=== PATIENT | male | born 1945 | race Caucasian/White ===

== ENCOUNTER → 2016-10-21 | Outpatient (CLI) | payer MEDICARE, BC | LOC: MW.CHGS 08:00 | PROVIDERS: ATTEND Surgery | DX: R19.5 Other fecal abnormalities (principal) | CPT/HCPCS: 99203 ==

== ENCOUNTER 2016-11-07 06:27 | Day surgery (SDC) | payer MEDICARE, BC ==
[~2016-11-07 06:27] MED LIST: Lactated Ringers 1,000 ML IV SCH; Sodium Chloride 0.9% 10 ML Syringe FLUSH PRN; Sodium Chloride 0.9% 2.5 ML Syringe FLUSH PRN
--- NOTE | 2016-11-07 07:06 | PCM.PREANE ---
Preanesthetic Assessment - Anesthesia/Transfusion/Family Hx Anesthesia History: Prior Anesthesia Without Reaction Family History of Anesthesia Reaction: No Transfusion History: Prior Transfusion Without Reaction Intubation History: Unknown - Review of Systems General: No Symptoms Pulmonary: No Symptoms Cardiovascular: No Symptoms Gastrointestinal: No symptoms Neurological: No Symptoms Other: Reports: None - Physical Assessment O2 Sat by Pulse Oximetry: 97 Respiratory Rate: 16 Vital Signs: Last Vital Signs Temp 36.5 C 11/07/16 06:48 Pulse 74 11/07/16 06:48 Resp 16 11/07/16 06:48 BP 134/76 11/07/16 06:48 Pulse Ox 97 11/07/16 06:48 Height: 1.65 m Weight: 114.759 kg ASA Class: 3 Mental Status: Alert & Oriented x3 Airway Class: Mallampati = 3 Dentition: Reports: Normal Dentition, Gerty(s) (x1 upper front) Thyro-Mental Finger Breadths: 3 Mouth Opening Finger Breadths: 2 ROM/Head Extension: Limited/Partial Lungs: Clear to auscultation, Normal respiratory effort, Decreased breath sounds Cardiovascular: Regular Rate, Regular Rhythm - Allergies Allergies/Adverse Reactions: Allergies Allergy/AdvReac Type Severity Reaction Status Date / Time levofloxacin [From Levaquin] Allergy Swelling Verified 11/02/16 12:07 - Blood Blood Available: No - Anesthesia Plan Pre-Op Medication Ordered: None - Acknowledgements Anesthesia Type Planned: MAC Pt an Appropriate Candidate for the Planned Anesthesia: Yes Alternatives and Risks of Anesthesia Discussed w Pt/Guardian: Yes Pt/Guardian Understands and Agrees with Anesthesia Plan: Yes PreAnesthesia Questionnaire Respiratory History: Reports: Other (See Below) Other Respiratory History: "farmers lung", sleep apnea (no longer uses CPAP, "has been having to get up to the bathroom often during the night due to prostatitis and does not both to put his CPAP back on"). He can walk couple of blocks slowly without SOB. Gastrointestinal History: Reports: GI Bleed, Other (See Below) Other Gastrointestinal History: occasional heartburn, hx GI bleed due to medication he was taking, had to have blood transfusion Genitourinary History: Reports: BPH, Prostate Disorder Other Genitourinary History: nocturia Musculoskeletal History: Reports: Other (See Below) Other Musculoskeletal History: occasional back pain Neurological History: Reports: Other (See Below) Other Neuro History: restless leg syndrome Endocrine/Metabolic History: Reports: Obesity/BMI 30+ Hematologic History: Reports: Blood Transfusion(s) - Past Surgical History Head Surgeries/Procedures: Reports: None HEENT Surgical History: Reports: Cataract Surgery GI Surgical History: Reports: Colonoscopy, EGD Other GI Surgeries/Procedures: hx hemorrhoidectomy, EGD, colonoscopy Musculoskeletal Surgical History: Reports: Other (See Below) Other Musculoskeletal Surgeries/Procedures:: left foot surgery for hammer toes - SUBSTANCE USE Smoking Status *Q: Never Smoker Recreational Drug Use History: No - HOME MEDS Home Medications: Home Meds Iron 28 mg PO ASDIRECTED 11/02/16 [History] L.acidoph,Paracasei, B.lactis [Probiotic] 1 tab PO ASDIRECTED 11/02/16 [History] Sulfamethoxazole/Trimethoprim [Bactrim 400-80 MG] 1 tab PO BID 11/02/16 [History ] - CURRENT (IN HOUSE) MEDS Current Meds: Current Medications Lactated Ringer's (Ringers, Lactated) 1,000 mls @ 125 mls/hr IV ASDIRECTED [facility] Last Admin: 11/07/16 06:47 Dose: 125 mls/hr Sodium Chloride (Saline Flush) 10 ml FLUSH ASDIRECTED PRN PRN Reason: Keep Vein Open Sodium Chloride (Saline Flush) 2.5 ml FLUSH ASDIRECTED PRN PRN Reason: Keep Vein Open
[2016-11-07] MEDS ORDERED: Lidocaine 2% 5 ML SDV ONE (07:14)
[2016-11-07] MEDS ORDERED: fentaNYL 100 MCG/2 ML SDV ONE (07:15)
[2016-11-07] MEDS ORDERED: Propofol 200 MG/20 ML SDV ONE (07:15)
--- NOTE | 2016-11-07 08:32 | PCM.OPNOTE ---
- General Post-Op/Procedure Note Date of Surgery/Procedure: 11/07/16 Operative Procedure(s): Diagnostic EGD and colonoscopy Findings: Large hiatal hernia, normal colon Pre Op Diagnosis: Positive fecal occult blood test Post-Op Diagnosis: hiatal hernia Anesthesia Technique: ANISH Primary Surgeon: Jennifer Costello Condition: Good
--- NOTE | 2016-11-07 08:39 | PCM.POSTAN ---
POST ANESTHESIA ASSESSMENT - MENTAL STATUS Mental Status: alert, oriented - RESPIRATORY Respiratory Status: respiratory rate WNL, airway patent, O2 saturation stable - CARDIOVASCULAR CV Status: pulse rate WNL, blood pressure stable - GASTROINTESTINAL GI Status: no symptoms - POST OP HYDRATION Hydration Status: adequate & stable - OBSERVATIONS Free Text/Narrative:: no anesthesia problems
[2016-11-07 08:58] VITALS: BP 133/78
--- NOTE | 2016-11-07 20:53 | OR ---
SURGEON: JENNIFER COSTELLO MD DATE OF PROCEDURE: 11/07/2016 PREOPERATIVE DIAGNOSIS: Positive fecal occult blood test. POSTOPERATIVE DIAGNOSIS: Hiatal hernia. PROCEDURES PERFORMED: Diagnostic EGD and colonoscopy. ENDOSCOPIST: Jennifer Costello MD. ANESTHESIA: MAC. INSTRUMENTS USED: Olympus endoscope and Olympus colonoscope. EXTENT OF EXAM: To the second portion of the duodenum during the endoscopic portion. To the cecum during the colonoscopic portion. PREP: Fair. COMPLICATIONS: None. INDICATIONS: The patient is a 71-year-old male, who presented to Clinic with a positive fecal occult blood test performed at his primary care physician's office. The patient denies any changes in his eating or bowel habits. The decision was made to perform a diagnostic EGD and colonoscopy. We discussed the procedures as well as the expected perioperative course. We discussed the risks including bleeding, infection, or damage to surrounding structures including perforation. The patient verbalized understanding and wished to proceed. PROCEDURE IN DETAIL: The patient was brought to the Endoscopy Suite, and placed on the cart in a beach chair position. A time-out was completed verifying the patient's name, age, date of , allergies, and procedure to be performed. Monitored anesthesia care was induced, and a bite block was placed in the patient's mouth. A continuous oxygen was provided via nasal cannula throughout the procedure. After adequate sedation was achieved, an Olympus endoscope was passed through the bite block into the patient's mouth, and advanced under direct visualization to the second portion of the duodenum. This appeared normal and a photograph was taken. The scope was then brought back. The duodenal bulb was normal appearing and a photograph was taken. The scope was brought into the stomach, and a photograph was taken of the pylorus as well as the esophageal hiatus. The patient was noted to have a large hiatal hernia at the esophageal hiatus. The stomach itself looked mildly erythematous. So, biopsies were taken of the gastric antrum, body, and fundus. The photograph was taken of the hiatal hernia right before the GE junction. The scope was brought into the esophagus, and a photograph was taken of the GE junction. The esophageal mucosa all appeared normal. The patient was placed in the left lateral decubitus position, and a digital rectal exam was performed. This examination was within normal limits. A well- lubricated colonoscope was inserted in the rectum and advanced under direct visualization to the level of the cecum. The cecum was identified by visual and anatomic landmarks. A photograph was taken of the cecal cap. I was unable to retroflex the scope within the cecum due to significant looping more proximally with the scope. The scope was then fully withdrawn while examining the color, texture, anatomy, and integrity of mucosa from the cecum to the anal canal. This was consistent with normal colonic mucosa. The scope was brought into the rectum and retroflexed to allow visualization of the anal canal opening. This appeared normal and a photograph was taken. The scope was then straightened out and removed from the patient. The cecum to anus time was 10 minutes. POSTOPERATIVE CONDITION: The patient tolerated the procedure well, and was taken to PACU in stable condition. ENDOSCOPIC DIAGNOSIS: Hiatal hernia. PLAN: We will have a barium swallow study done prior to the patient coming to see me back in Clinic in 1 to 2 weeks. AGAPITO MEJÍA /[id number]
== END 2016-11-07 09:05 | disposition home or self-care (01) ==
LOC: MW.SDS 06:27
PROVIDERS: ATTEND Surgery
PROC: 0DB68ZX Excision of Stomach, Via Natural or Artificial Opening Endoscopic, Diagnostic (ICD-10-PCS; principal; 2016-11-07)
PROC: 0DJD8ZZ Inspection of Lower Intestinal Tract, Via Natural or Artificial Opening Endoscopic (ICD-10-PCS; 2016-11-07)
DX: K44.9 Diaphragmatic hernia without obstruction or gangrene (principal); N39.0 Urinary tract infection, site not specified; N41.1 Chronic prostatitis; J45.909 Unspecified asthma, uncomplicated; G47.30 Sleep apnea, unspecified; N40.0 Benign prostatic hyperplasia without lower urinary tract symptoms; E66.9 Obesity, unspecified; Z79.2 Long term (current) use of antibiotics; Z79.899 Other long term (current) drug therapy; Z88.1 Allergy status to other antibiotic agents; Z80.0 Family history of malignant neoplasm of digestive organs; Z98.49 Cataract extraction status, unspecified eye; Z98.890 Other specified postprocedural states; Z68.41 Body mass index [BMI] 40.0-44.9, adult
CPT/HCPCS: 43239; 45378; J3010; J7120; 00740; 88305; 88312; J2704

== ENCOUNTER 2018-07-20 15:21 | Emergency (ER) | payer MEDICARE, BC ==
--- NOTE | 2018-07-20 15:42 | EDM.PDOC ---
ED HPI GENERAL MEDICAL PROBLEM - General Chief Complaint: General Stated Complaint: FEVER Time Seen by Provider: 07/20/18 15:35 - History of Present Illness INITIAL COMMENTS - FREE TEXT/NARRATIVE: HISTORY AND PHYSICAL: History of present illness: Patient a 72-year-old white male presents with concern of fever he had a recent root canal and has had some mild cough over the last day or 2. He did get influenza immunization this year he denies shortness of breath his fever has been responsive to antipyretics and is afebrile on arrival here. Review of systems: As per history of present illness and below otherwise all systems reviewed and negative. Past medical history: As per history of present illness and as reviewed below otherwise noncontributory. Surgical history: As per history of present illness and as reviewed below otherwise noncontributory. Social history: No reported history of drug or alcohol abuse. Family history: As per history of present illness and as reviewed below otherwise noncontributory. Physical exam: HEENT: Atraumatic, normocephalic, pupils reactive, negative for conjunctival pallor or scleral icterus, mucous membranes moist, throat clear, neck supple, nontender, trachea midline. Lungs: Clear to auscultation, breath sounds equal bilaterally, chest nontender. Heart: S1S2, regular, negative for clicks, rubs, or JVD. Abdomen: Soft, nondistended, nontender. Negative for masses or hepatosplenomegaly. Negative for costovertebral tenderness. Pelvis: Stable nontender. Genitourinary: Deferred. Rectal: Deferred. Extremities: Atraumatic, negative for cords or calf pain. Neurovascular unremarkable. Neuro: Awake, alert, oriented. Cranial nerves II through XII unremarkable. Cerebellum unremarkable. Motor and sensory unremarkable throughout. Exam nonfocal. Diagnostics: CBC CMP UA blood cultures 2 chest x-ray influenza screen Therapeutics: None Impression: #1 history of fever #2 history recent root canal Definitive disposition and diagnosis as appropriate pending reevaluation and review of above. - Related Data Allergies Allergy/AdvReac Type Severity Reaction Status Date / Time levofloxacin [From Levaquin] Allergy Swelling Verified 07/20/18 15:42 Home Meds: Home Meds . [No Known Home Meds] 07/20/18 [History] Past Medical History Respiratory History: Reports: Other (See Below) Other Respiratory History: "farmers lung", sleep apnea (no longer uses CPAP, "has been having to get up to the bathroom often during the night due to prostatitis and does not both to put his CPAP back on"). He can walk couple of blocks slowly without SOB. Gastrointestinal History: Reports: GI Bleed, Other (See Below) Other Gastrointestinal History: occasional heartburn, hx GI bleed due to medication he was taking, had to have blood transfusion Genitourinary History: Reports: BPH, Prostate Disorder Other Genitourinary History: nocturia Musculoskeletal History: Reports: Other (See Below) Other Musculoskeletal History: occasional back pain Neurological History: Reports: Other (See Below) Other Neuro History: restless leg syndrome Endocrine/Metabolic History: Reports: Obesity/BMI 30+ Hematologic History: Reports: Blood Transfusion(s) - Past Surgical History Head Surgeries/Procedures: Reports: None HEENT Surgical History: Reports: Cataract Surgery GI Surgical History: Reports: Colonoscopy, EGD Other GI Surgeries/Procedures: hx hemorrhoidectomy, EGD, colonoscopy Musculoskeletal Surgical History: Reports: Other (See Below) Other Musculoskeletal Surgeries/Procedures:: left foot surgery for hammer toes ED ROS GENERAL - Review of Systems Review Of Systems: ROS reveals no pertinent complaints other than HPI. ED EXAM, GENERAL - Physical Exam Exam: See Below (See dictation) Course - Vital Signs Text/Narrative:: Patient has an unremarkable ED course he is adamant that he has no dental pain or swelling he has had some loose stool but denies abdominal pain I discussed with patient and empiric antibiotics. They declined and requested discharge home and follow-up with her private medical doctor we will attempt to get stool for C&S O&P and C. difficile prior to Last Recorded V/S: Last Vital Signs Temp 36.9 C 07/20/18 15:43 Pulse 93 07/20/18 15:43 Resp 16 07/20/18 15:43 BP 124/75 07/20/18 15:43 Pulse Ox 98 07/20/18 15:43 - Orders/Labs/Meds Orders: Active Orders 24 hr Category Date Time Status CULTURE BLOOD [BC] Stat Lab 07/20/18 15:57 Received CULTURE BLOOD [BC] Stat Lab 07/20/18 16:13 Received CULTURE URINE [RM] Stat Lab 07/20/18 16:00 Received Blood Culture x2 Reflex Set [OM.PC] Stat Oth 07/20/18 15:39 Ordered Labs: Laboratory Tests 07/20/18 07/20/18 07/20/18 Range/Units 15:57 15:57 16:00 WBC 6.54 (4.0-11.0) K/uL RBC 4.67 (4.50-5.90) M/uL Hgb 12.3 L (13.0-17.0) g/dL Hct 38.4 (38.0-50.0) % MCV 82.2 (80.0-98.0) fL MCH 26.3 L (27.0-32.0) pg MCHC 32.0 (31.0-37.0) g/dL RDW Std Deviation 51.4 (28.0-62.0) fl RDW Coeff of Loan 17 H (11.0-15.0) % Plt Count 253 (150-400) K/uL MPV 10.70 (7.40-12.00) fL Neut % (Auto) 78.0 (48.0-80.0) % Lymph % (Auto) 9.9 L (16.0-40.0) % [place] % (Auto) 9.2 (0.0-15.0) % Eos % (Auto) 2.1 (0.0-7.0) % Baso % (Auto) 0.8 (0.0-1.5) % Neut # (Auto) 5.1 (1.4-5.7) K/uL Lymph # (Auto) 0.7 (0.6-2.4) K/uL [place] # (Auto) 0.6 (0.0-0.8) K/uL Eos # (Auto) 0.1 (0.0-0.7) K/uL Baso # (Auto) 0.1 (0.0-0.1) K/uL Nucleated RBC % 0.0 /100WBC Nucleated RBCs # 0 K/uL Sodium 138 (136-148) mmol/L Potassium 3.9 (3.5-5.1) mmol/L Chloride 105 (98-107) mmol/L Carbon Dioxide 21.1 (21.0-32.0) mmol/L BUN 14 (7.0-18.0) mg/dL Creatinine 1.4 H (0.8-1.3) mg/dL Est Cr Clr Drug Dosing 43.67 mL/min Estimated GFR (MDRD) 50.0 ml/min Glucose 142 H (74-106) mg/dL Calcium 8.4 L (8.5-10.1) mg/dL Total Bilirubin 0.2 (0.2-1.0) mg/dL AST 22 (15-37) IU/L ALT 26 (14-63) IU/L Alkaline Phosphatase 73 (46-116) U/L Total Protein 7.1 (6.4-8.2) g/dL Albumin 3.4 (3.4-5.0) g/dL Globulin 3.7 (2.6-4.0) g/dL Albumin/Globulin Ratio 0.9 (0.9-1.6) Urine Color YELLOW Urine Appearance CLEAR Urine pH 5.5 (5.0-8.0) Ur Specific [place] 1.010 (1.001-1.035) Urine Protein NEGATIVE (NEGATIVE) mg/dL Urine Glucose (UA) NEGATIVE (NEGATIVE) mg/dL Urine Ketones NEGATIVE (NEGATIVE) mg/dL Urine Occult Blood NEGATIVE (NEGATIVE) Urine Nitrite NEGATIVE (NEGATIVE) Urine Bilirubin NEGATIVE (NEGATIVE) Urine Urobilinogen 0.2 (<2.0) EU/dL Ur Leukocyte Esterase SMALL H (NEGATIVE) Urine RBC 0-1 (0-2/HPF) Urine WBC 3-4 (0-5/HPF) Ur Epithelial Cells FEW (NONE-FEW) Urine Bacteria RARE (NEGATIVE) Departure - Departure Time of Disposition: 17:44 Disposition: Home, Self-Care 01 Condition: Good Clinical Impression: History of fever, History of recent dental procedure - Discharge Information Referrals: Zack Vail MD [Primary Care Provider] - Forms: ED Department Discharge Additional Instructions: The following information is given to patients seen in the emergency department who are being discharged to home. This information is to outline your options for follow-up care. We provide all patients seen in our emergency department with a follow-up referral. The need for follow-up, as well as the timing and circumstances, are variable depending upon the specifics of your emergency department visit. If you don't have a primary care physician on staff, we will provide you with a referral. We always advise you to contact your personal physician following an emergency department visit to inform them of the circumstance of the visit and for follow-up with them and/or the need for any referrals to a consulting specialist. The emergency department will also refer you to a specialist when appropriate. This referral assures that you have the opportunity for followup care with a specialist. All of these measure are taken in an effort to provide you with optimal care, which includes your followup. Under all circumstances we always encourage you to contact your private physician who remains a resource for coordinating your care. When calling for followup care, please make the office aware that this follow-up is from your recent emergency room visit. If for any reason you are refused follow-up, please contact the [facility] emergency department at and asked to speak to the emergency department charge nurse. Follow-up primary medical doctor as discussed Motrin/Tylenol as directed push fluids and return as needed as discussed - My Orders Last 24 Hours: My Active Orders 07/20/18 15:39 Blood Culture x2 Reflex Set [OM.PC] Stat 07/20/18 15:57 CULTURE BLOOD [BC] Stat 07/20/18 16:00 CULTURE URINE [RM] Stat 07/20/18 16:13 CULTURE BLOOD [BC] Stat - Assessment/Plan Last 24 Hours: My Active Orders 07/20/18 15:39 Blood Culture x2 Reflex Set [OM.PC] Stat 07/20/18 15:57 CULTURE BLOOD [BC] Stat 07/20/18 16:00 CULTURE URINE [RM] Stat 07/20/18 16:13 CULTURE BLOOD [BC] Stat
--- NOTE | 2018-07-20 17:07 | CR ---
HISTORY: Chest pain and shortness of breath. COMPARISON: None available FINDINGS: A portable erect AP view of the chest was obtained at 16 17 hours. The lungs are clear. No focal or diffuse infiltrates are present. The heart is normal in size. A large hiatal hernia appears to be present in the retrocardiac region. The osseous structures are normal in appearance for the patient`s age. IMPRESSION: No active disease seen in the chest. Probable large hiatal hernia in the retrocardiac region. Dictated by Bk Reynolds MD @ Jul 20 2018 5:03PM Signed by Dr. Bk Reynolds @ Jul 20 2018 5:04PM
[2018-07-20 18:27] VITALS: BP 125/75
== END 2018-07-20 18:18 | disposition home or self-care (01) ==
LOC: MW.ED 15:21
DX: R50.9 Fever, unspecified (principal); Z98.818 Other dental procedure status; Z88.1 Allergy status to other antibiotic agents
CPT/HCPCS: 36415; 71045; 71045-26; 80053; 81001; 85025; 87040; 87046; 87086; 87324; 87804; 87899; 99283